=== PATIENT | female | born 1995 | race Two or more races ===

== ENCOUNTER 2023-12-05 22:32 | Emergency (ER) | payer OTHER ==
[~2023-12-05] VITALS: Ht 160 cm; Wt 62.7 kg
[2023-12-06] MEDS ORDERED: AZITTAB PO (01:11)
[2023-12-06] MEDS ORDERED: ALBUAER3 IN (01:11)
[2023-12-06] MEDS ORDERED: BENZ200C64 PO (01:11)
[2023-12-06] MEDS ORDERED: IBUP1TAB5 PO (01:11)
[2023-12-06] MEDS ORDERED: cefTRIAXone SOD 1,000 MG VL ONE (01:47)
[2023-12-06] MEDS ORDERED: HYDROcodone-ACET 5/325MG TAB ONE (01:48)
[2023-12-06] MEDS: cefTRIAXone SOD 1,000 MG VL IM ONE (01:49)
[2023-12-06 01:50] VITALS: BP 128/81; PULSE 98; RESP 20; TEMP 98.4; O2SAT 98
[2023-12-06] MEDS: HYDROcodone-ACET 5/325MG TAB PO ONE (01:50)
== END 2023-12-06 02:05 | disposition home or self-care (01) ==
LOC: EDBD 22:32 → ER 22:32
DX: S20.219A Contusion of unspecified front wall of thorax, initial encounter (principal); J18.9 Pneumonia, unspecified organism; V49.40XA Driver injured in collision with unspecified motor vehicles in traffic accident, initial encounter; Y93.89 Activity, other specified; Y92.89 Other specified places as the place of occurrence of the external cause; Y99.8 Other external cause status
CPT/HCPCS: 71250; 96372; 99285; J0696